=== PATIENT | female | born 1985 | race Caucasian/White ===

== ENCOUNTER → 2021-03-16 09:59 | Outpatient (BNVA) | payer MEDICAID, SELFPAY | PROVIDERS: PCP Family Medicine; Visit Provider Specialist | DX: G35 Multiple sclerosis (principal); F17.200 Nicotine dependence, unspecified, uncomplicated | CPT/HCPCS: 99214; 99215 ==

== ENCOUNTER → 2022-07-02 11:13 | Outpatient (BNVA) | payer MEDICAID, SELFPAY | PROVIDERS: PCP Family Medicine; Visit Provider Specialist | DX: G35 Multiple sclerosis (principal); Z79.899 Other long term (current) drug therapy; F17.200 Nicotine dependence, unspecified, uncomplicated | CPT/HCPCS: 99213 ==

== ENCOUNTER → 2023-08-04 12:41 | Outpatient (BNVA) | payer MEDICAID, SELFPAY | PROVIDERS: PCP Family Medicine; Visit Provider Specialist | DX: G35 Multiple sclerosis (principal) | CPT/HCPCS: 99213 ==